=== PATIENT | male | born 1945 | race American Indian/Alaskan Native ===

== ENCOUNTER 2016-11-09 19:46 | Inpatient (IN) | payer OTHER, MEDICAID ==
--- NOTE | 2016-11-09 19:52 | EDPHY ---
H & P Time Seen by Provider: 11/09/16 19:51 Constitutional: Initial Vital Signs Temperature (C) 36.7 C 11/09/16 20:16 Heart Rate 74 11/09/16 20:16 Respiratory Rate 18 11/09/16 20:16 Blood Pressure 182/112 H 11/09/16 20:16 O2 Sat (%) 99 11/09/16 20:16 O2 Delivery Mode Room Air Allergies/Adverse Reactions: Unable to Assess Allergy (Unverified 11/09/16 20:06) Home Medications: Medication Instructions Recorded Unobtainable 11/09/16 Medical Decision Making ED Course/Re-evaluation: CHIEF COMPLAINT: Altered mental status. HISTORY OF PRESENT ILLNESS: The patient is a 71-year-old male with history of dementia, found down on [address], presenting with altered mental stats. The patient arrived Tuesday from [place]. He currently resides at an assisted living facility and absconded from the facility this evening. His caregiver was unaware that the patient left. He was found down on the side of the road. History is unobtainable due to patients altered mental status. REVIEW OF SYSTEMS: Unobtainable due to altered mental status. PHYSICAL EXAM: HR, BP, O2 Sat, RR. Temp noted General Appearance: Alert, well hydrated, appropriate, and non-toxic appearing. Head: Atraumatic without scalp tenderness or obvious injury Eyes: Pupils equal, round, reactive to light and accommodation, EOMI, no trauma , no injection. Ears: Clear bilaterally, no perforation, normal landmarks Nose: Atraumatic, no rhinorrhea, clear. Throat: There is no erythema or exudates, no lesions, normal tonsils, mucus membranes moist. Neck: Supple, 2+ carotid upstroke, nontender, no lymphadenopathy. Respiratory: No retractions, no distress, no wheezes, and no accessory muscle use. Lungs are clear to auscultation bilaterally. Cardiovascular: Regular rate and rhythm, no murmurs, rubs, or gallops. Bilateral carotid, radial, dorsalis pedis, and posterior tibial pulses intact. Good capillary refill all extremities. Gastrointestinal: Abdomen is soft, nontender, non-distended, no masses, no rebound, no guarding, no peritoneal signs. Musculoskeletal: Normal active ROM of all extremities, atraumatic. Neurological: Alert, appropriate, and interactive. The patient has normal DTRs and non-focal cranial nerves, motor, sensory, and cerebellar exam. Skin: No rashes, good turgor, no nodules on palpation. Past medical history: Dementia Past surgical history: Unknown. Family history: Unknown. Social history: From [place]. DIAGNOSTICS/PROCEDURES/CRITICAL CARE TIME: DIFFERENTIAL DIAGNOSIS: The differential diagnosis for the patient's altered mental status included but was not limited to hypoglycemia, infectious process, electrolyte abnormality, head injury, neurologic process, anemia, cardiac process, and intoxicants. MEDICAL DECISION MAKING: Patient presents with altered mental status. Patient was found down on the side of the road. He arrived in [place] 3 days ago from [place]. He has an abrasion to the bridge of his nose. Plan for lab work and CT head. No alcohol found. UA is negative for infection. Na is slightly low at 130 though I do not suspect this is the cause of AMS. Plan to admit the patient. 9:35 p.m.: I spoke to the hospitalist, the patient will be admitted to Dr. Corbett. - Data Points Laboratory Results: Laboratory Results 11/09/16 20:30 11/09/16 20:30 11/09/16 11/09/16 11/09/16 20:30 20:30 20:20 WBC 11.81 10^3/uL H 10^3/uL (3.80-9.50) RBC 3.92 10^6/uL L 10^6/uL (4.40-6.38) Hgb 13.0 g/dL L g/dL (13.7-17.5) Hct 35.4 % L % (40.0-51.0) MCV 90.3 fL fL (81.5-99.8) MCH 33.2 pg pg (27.9-34.1) MCHC 36.7 g/dL g/dL (32.4-36.7) RDW 12.3 % % (11.5-15.2) Plt Count 291 10^3/uL 10^3/uL (150-400) MPV 9.5 fL fL (8.7-11.7) Neut % (Auto) 89.5 % H % (39.3-74.2) Lymph % (Auto) 4.1 % L % (15.0-45.0) [place] % (Auto) 4.6 % % (4.5-13.0) Eos % (Auto) 0.4 % L % (0.6-7.6) Baso % (Auto) 0.3 % % (0.3-1.7) Nucleat RBC Rel Count 0.0 % % (0.0-0.2) Absolute Neuts (auto) 10.56 10^3/uL H 10^3/uL (1.70-6.50) Absolute Lymphs (auto) 0.49 10^3/uL L 10^3/uL (1.00-3.00) Absolute Monos (auto) 0.54 10^3/uL 10^3/uL (0.30-0.80) Absolute Eos (auto) 0.05 10^3/uL 10^3/uL (0.03-0.40) Absolute Basos (auto) 0.04 10^3/uL 10^3/uL (0.02-0.10) Absolute Nucleated RBC 0.00 10^3/uL 10^3/uL (0-0.01) Immature Gran % 1.1 % % (0.0-1.1) Immature Gran # 0.13 10^3/uL H 10^3/uL (0.00-0.10) Sodium 130 mEq/L L mEq/L (134-144) Potassium 4.2 mEq/L mEq/L (3.5-5.2) Chloride 95 mEq/L L mEq/L (97-110) Carbon Dioxide 20 mEq/l L mEq/l (22-31) Anion Gap 15 mEq/L mEq/L (8-16) BUN 16 mg/dL mg/dL (7-23) Creatinine 0.8 mg/dL mg/dL (0.7-1.3) Estimated GFR > 60 Glucose 170 mg/dL H mg/dL (70-100) Calcium 9.8 mg/dL mg/dL (8.5-10.4) Urine Opiates Screen NEGATIVE (NEGATIVE) Urine Barbiturates NEGATIVE (NEGATIVE) Ur Phencyclidine Scrn NEGATIVE (NEGATIVE) Ur Amphetamine Screen NEGATIVE (NEGATIVE) U Benzodiazepines Scrn NEGATIVE (NEGATIVE) Urine Cocaine Screen NEGATIVE (NEGATIVE) U Marijuana (THC) Screen NON-NEGATIVE H (NEGATIVE) Ethyl Alcohol < 10 mg/dL mg/dL (0-10) Departure - Departure Disposition: [facility] Inpatient Acute Clinical Impression: Altered mental status Qualifiers: Altered mental status type: unspecified Qualified Code(s): R41.82 - Altered mental status, unspecified Condition: Fair Referrals: Patient,NotPresent [Unknown] - As per Instructions Report Scribed for: Ar Lim Report Scribed by: Leann Apple Date of Report: 11/09/16 Time of Report: 20:03
[2016-11-09] MEDS ORDERED: ONDANSETRON 4 MG/2 ML VIAL ONE (20:39)
[2016-11-09 20:48] LABS: % IMMATURE GRANULYOCYTES 1.1 % (0.0-1.1); ABSOLUTE IMMATURE GRANULOCYTES 0.13 10^3/uL (0.00-0.10); ADD DIFF? NO; ADD MORPH? NO; ADD SCAN? NO; ATYPICAL LYMPHOCYTE FLAG 0 (0-99); FRAGMENT RBC FLAG 0 (0-99); HEMATOCRIT 35.4 % (40.0-51.0); LEFT SHIFT FLG 0 (0-99); LIPEMIA HEMOLYSIS FLAG 90 (0-99); MEAN CELL HEMOGLOBIN 33.2 pg (27.9-34.1); MEAN CELL HEMOGLOBIN CONCENTR. 36.7 g/dL (32.4-36.7); MEAN CELL VOLUME 90.3 fL (81.5-99.8); MEAN PLATELET VOLUME 9.5 fL (8.7-11.7); PLATELET CLUMPS FLAG 0 (0-99); PLATELET COUNT 291 10^3/uL (150-400); RED BLOOD CELL COUNT 3.92 10^6/uL (4.40-6.38); RED CELL DISTRIBUTION WIDTH 12.3 % (11.5-15.2)
[2016-11-09 21:06] LABS: ANION GAP 15 mEq/L (8-16); CALCIUM 9.8 mg/dL (8.5-10.4); CARBON DIOXIDE 20 mEq/l (22-31); CHLORIDE 95 mEq/L (97-110); CREATININE 0.8 mg/dL (0.7-1.3); ETHANOL SERUM < 10 mg/dL (0-10); GLOMERULAR FILTRATION RATE > 60; GLUCOSE 170 mg/dL (70-100); POTASSIUM 4.2 mEq/L (3.5-5.2); SODIUM 130 mEq/L (134-144)
[2016-11-09] MEDS ORDERED: ONDANSETRON DISINTEGRATING 4 MG TAB PO PRN (22:30)
[2016-11-09] MEDS ORDERED: ONDANSETRON 4 MG/2 ML VIAL IVP PRN (22:30)
--- NOTE | 2016-11-09 22:40 | PDGENHP ---
History and Physical - Chief Complaint altered mental status - History of Present Illness History is limited due to patient's altered mental status; peripheral history obtained from patient's friend and from ED staff. Patient is a 71 year old male with DM2, HTN, CAD, dementia who was brought to the ED by EMS after being found unresponsive. Per patient's friend, he is currently visiting [place] from [facility], arrived on 11/05 and is staying with the friend in [place]. Friend states his mental status began to alter on 11/07 evening, with episodes of agitation and extreme confusion. The following day, friend also notice patient's gait was off balance and he nearly fell several times over the following day. Today, patient walked down the friend's driveway into the street to get the mail at about 630-7pm and didn't return. He was apparently found down on the side of the road by bystanders, so EMS was called and he was brought in to the ED. On arrival to the ED, patient was afebrile, slightly hypertensive, and significantly altered. Labs revealed mild leukocytosis, mild hyponatremia. Urine drug screen was positive for marijuana only. CT head showed significant microvascular disease, but no acute intracranial hemorrhage, edema, mass. EKG without evidence of ischemia. He was given IVF hydration and admitted to the hospitalist service for further management. History Information - Allergies/Home Medication List Allergies/Adverse Reactions: Unable to Assess Allergy (Unverified 11/09/16 20:06) Home Medications: Unobtainable 11/09/16 [Last Taken Unknown] I have personally reviewed and updated: family history, medical history, social history, surgical history - Past Medical History Additional medical history: Dementia. DM2. Hypertension. CAD. history given by patient's friend, unable to verify with patient - Surgical History Additional surgical history: unknown - Family History Additional family history: unknown - Social History Smoking Status: Former smoker (distant past history of tobacco use) Alcohol Use: Sober (x 3 years) Drug Use: Marijuana (daily use) Additional social history: Patient is juanis, per friend patient currently lives independently in [facility]; visiting a friend in [place] Review of Systems Review of Systems: unable to obtain full ROS Physical Exam Temp Pulse Resp BP Pulse Ox 36.7 C 74 18 182/112 H 99 11/09/16 20:16 11/09/16 20:16 11/09/16 20:16 11/09/16 20:16 11/09/16 20:16 Constitutional: no apparent distress, appears nourished, not in pain Eyes: PERRL, anicteric sclera, EOMI Ears, Nose, Mouth, Throat: moist mucous membranes, hearing normal, ears appear normal, no oral mucosal ulcers Cardiovascular: regular rate and rhythym, no murmur, rub, or gallop, pulses symmetric bilaterally, No JVD, No edema Peripheral Pulses: 2+: dorsalis-pedis (R), dorsalis-pedis (L) Respiratory: no respiratory distress, no rales or rhonchi, clear to auscultation Gastrointestinal: normoactive bowel sounds, soft, non-tender abdomen, no palpable masses, No tenderness, No guarding, No rebound, No distension Genitourinary: no bladder fullness, no bladder tenderness Skin: warm, normal color, abrasion (on bridge of nose and R zygomatic process) Musculoskeletal: full muscle strength, no muscle tenderness, normal joint ROM, no joint effusions, other (no point spinal tenderness) Neurologic: other (oriented to person only; moving all extremities equally) Psychiatric: encephalopathic Lab Data & Imaging Review 11/09/16 20:30 11/09/16 20:30 WBC 11.81 10^3/uL (3.80-9.50) H 11/09/16 20:30 RBC 3.92 10^6/uL (4.40-6.38) L 11/09/16 20:30 Hgb 13.0 g/dL (13.7-17.5) L 11/09/16 20:30 Hct 35.4 % (40.0-51.0) L 11/09/16 20:30 MCV 90.3 fL (81.5-99.8) 11/09/16 20:30 MCH 33.2 pg (27.9-34.1) 11/09/16 20:30 MCHC 36.7 g/dL (32.4-36.7) 11/09/16 20:30 RDW 12.3 % (11.5-15.2) 11/09/16 20:30 Plt Count 291 10^3/uL (150-400) 11/09/16 20:30 MPV 9.5 fL (8.7-11.7) 11/09/16 20:30 Neut % (Auto) 89.5 % (39.3-74.2) H 11/09/16 20:30 Lymph % (Auto) 4.1 % (15.0-45.0) L 11/09/16 20:30 [place] % (Auto) 4.6 % (4.5-13.0) 11/09/16 20:30 Eos % (Auto) 0.4 % (0.6-7.6) L 11/09/16 20:30 Baso % (Auto) 0.3 % (0.3-1.7) 11/09/16 20:30 Nucleat RBC Rel Count 0.0 % (0.0-0.2) 11/09/16 20:30 Absolute Neuts (auto) 10.56 10^3/uL (1.70-6.50) H 11/09/16 20:30 Absolute Lymphs (auto) 0.49 10^3/uL (1.00-3.00) L 11/09/16 20:30 Absolute Monos (auto) 0.54 10^3/uL (0.30-0.80) 11/09/16 20:30 Absolute Eos (auto) 0.05 10^3/uL (0.03-0.40) 11/09/16 20:30 Absolute Basos (auto) 0.04 10^3/uL (0.02-0.10) 11/09/16 20:30 Absolute Nucleated RBC 0.00 10^3/uL (0-0.01) 11/09/16 20:30 Immature Gran % 1.1 % (0.0-1.1) 11/09/16 20:30 Immature Gran # 0.13 10^3/uL (0.00-0.10) H 11/09/16 20:30 Sodium 130 mEq/L (134-144) L 11/09/16 20:30 Potassium 4.2 mEq/L (3.5-5.2) 11/09/16 20:30 Chloride 95 mEq/L (97-110) L 11/09/16 20:30 Carbon Dioxide 20 mEq/l (22-31) L 11/09/16 20:30 Anion Gap 15 mEq/L (8-16) 11/09/16 20:30 BUN 16 mg/dL (7-23) 11/09/16 20:30 Creatinine 0.8 mg/dL (0.7-1.3) 11/09/16 20:30 Estimated GFR > 60 11/09/16 20:30 Glucose 170 mg/dL (70-100) H 11/09/16 20:30 Calcium 9.8 mg/dL (8.5-10.4) 11/09/16 20:30 Urine Opiates Screen NEGATIVE (NEGATIVE) 11/09/16 20:20 Urine Barbiturates NEGATIVE (NEGATIVE) 11/09/16 20:20 Ur Phencyclidine Scrn NEGATIVE (NEGATIVE) 11/09/16 20:20 Ur Amphetamine Screen NEGATIVE (NEGATIVE) 11/09/16 20:20 U Benzodiazepines Scrn NEGATIVE (NEGATIVE) 11/09/16 20:20 Urine Cocaine Screen NEGATIVE (NEGATIVE) 11/09/16 20:20 U Marijuana (THC) Screen NON-NEGATIVE (NEGATIVE) H 11/09/16 20:20 Ethyl Alcohol < 10 mg/dL (0-10) 11/09/16 20:30 Visualized and Interpreted imaging results: Yes Interpretation: CT head: no acute intracranial abnormalities, microvascular changes Visualized and Interpreted EKG results: Yes EKG Interpretation: Positive for: normal sinsus rhythm (no st/t wave changes) Assessment & Plan Assessment: Patient is a 71 year old male with DM2, HTN, CAD, dementia, whose baseline mental status is not clear (apparently lives independently), who was found altered on the side of a road, brought into the ED by EMS. ED evaluation reveals evidence of mild dehydration on labs, mild leukocytosis, but no obvious infection. Etiology of acute encephalopathy is likely multifactorial. Plan: # acute encephalopathy Likely multifactorial, related to mild dehydration, acute marijuana intoxication and his underlying dementia. On exam, although encephalopathic, he has no other focal deficits, is moving all extremities equally. CT head shows chronic microvascular changes without acute hemorrhage or infarct. Labs do show mild leukocytosis and evidence of mild hyponatremia/hypochloremia consistent with dehydration. Differential includes dehydration, infection, syncope, seizure , intoxication. Will check UA to rule out infection, continue gentle IV hydration overnight and continue to monitor. If no improvement in MS, consider MRI brain, neurology consult. # presumed fall vs syncope Patient was found on the ground at the side of a road. Given abrasions on his face, it was presumed he fell vs syncopized. Patient cannot provide a detailed history of what happened. Friend does state patient has been unsteady on his feet for the past 2-3 days, but has not had any witnessed falls. At baseline, patient uses walking sticks to ambulate. Will place on fall precautions, obtain PT/OT eval. Will monitor on telemetry, check TTE to r/o cardiac syncope. # DM2 Patient reports not taking any medications for this, although is encephalopathic. Will attempt to confirm home medications, and monitor FS with sliding scale coverage. # HTN BP elevated on presentation, has improved over ED course. Will continue to monitor and confirm home meds. # ?CAD Patient's friend reports he has had an KS in the past, unclear when and if PCI was performed. Admission EKG shows sinus rhythm without evidence of ischemia. Confirm and resume home meds. # dispo: admit to observation status for mild dehydration, encephalopathy # gen: diabetic diet DVT ppx: lovenox Full code
[2016-11-09] MEDS: NS 1,000 ML IV SCH (23:46)
[2016-11-10 04:57] LABS: % IMMATURE GRANULYOCYTES 0.7 % (0.0-1.1); ABSOLUTE IMMATURE GRANULOCYTES 0.05 10^3/uL (0.00-0.10); ADD DIFF? NO; ADD MORPH? NO; ADD SCAN? NO; ATYPICAL LYMPHOCYTE FLAG 0 (0-99); FRAGMENT RBC FLAG 0 (0-99); HEMATOCRIT 34.1 % (40.0-51.0); HEMOGLOBIN 12.7 g/dL (13.7-17.5); LEFT SHIFT FLG 0 (0-99); LIPEMIA HEMOLYSIS FLAG 90 (0-99); MEAN CELL HEMOGLOBIN 33.6 pg (27.9-34.1); MEAN CELL HEMOGLOBIN CONCENTR. 37.2 g/dL (32.4-36.7); MEAN CELL VOLUME 90.2 fL (81.5-99.8); MEAN PLATELET VOLUME 9.3 fL (8.7-11.7); PLATELET CLUMPS FLAG 10 (0-99); PLATELET COUNT 276 10^3/uL (150-400); RED BLOOD CELL COUNT 3.78 10^6/uL (4.40-6.38); RED CELL DISTRIBUTION WIDTH 12.2 % (11.5-15.2)
[2016-11-10 04:59] LABS: COLOR PALE YELLOW; LEUKOCYTE ESTERASE,URINE NEGATIVE (NEGATIVE); NITRITE,URINE NEGATIVE (NEGATIVE)
[2016-11-10 05:01] LABS: APTT 30.5 SEC (23.0-38.0); INR 1.06 (0.83-1.16); PROTIME(PATIENT) 13.7 SEC (12.0-15.0)
[2016-11-10 05:08] LABS: ALANINE AMINOTRANSFERASE 60 IU/L (21-72); ALBUMIN 4.5 g/dL (3.5-5.0); ALKALINE PHOSPHATASE 68 IU/L (38-126); ANION GAP 11 mEq/L (8-16); ASPARTATE AMINOTRANSFERASE 78 IU/L (17-59); BILIRUBIN,TOTAL 1.4 mg/dL (0.1-1.4); CALCIUM 9.2 mg/dL (8.5-10.4); CARBON DIOXIDE 20 mEq/l (22-31); CHLORIDE 101 mEq/L (97-110); CREATININE 0.6 mg/dL (0.7-1.3); GLOMERULAR FILTRATION RATE > 60; GLUCOSE 139 mg/dL (70-100); MAGNESIUM 1.7 mg/dL (1.6-2.3); SODIUM 132 mEq/L (134-144); TOTAL PROTEIN 7.4 g/dL (6.3-8.2)
[2016-11-10 05:21] LABS: WBC,URINE NONE SEEN /hpf (0-3)
[2016-11-10] MEDS: ACETAMINOPHEN 325 MG TAB PO PRN ×3 (06:13→20:46)
[2016-11-10] MEDS: ENOXAPARIN 40 MG/0.4 ML SYR SC SCH (08:42)
[2016-11-10] MEDS ORDERED: hydrALAZINE 20 MG/ML VIAL IVP ONE (09:16)
[2016-11-10] MEDS ORDERED: HALOPERIDOL LACT 5 MG/ML INJ IM ONE (09:21)
--- NOTE | 2016-11-10 12:07 | ECHO ---
[id number] + + [address] : : [place] [address] : : [phone] + Adult Echocardiographic Report + ----+ :Name: ABIGAIL NEAL RStudy Date: 11/10/2016 10:13 AM : : Hospital Admission Number: [id number] Location: 343: :: 1945 Gender: Male Height: 67 in : :Age: 71 yrs Race: AIA Weight: 135 lb : :Reason For Study: Eval LV Fx : : BSA: 1.7 meters2 : :History: Altered mental status, Patient found down, Syncope : + ----+ MMode/2D Measurements \T\ Calculations IVSd: 0.86 cm LVIDd: 3.8 cm FS: 44.8 % LVPWd: 0.94 cm LVIDs: 2.1 cm EDV(Teich): 62.7 ml ESV(Teich): 14.6 ml EF(Teich): 76.8 % Normal Measurement Values: + + :LVIDd (3.5-5.7cm) IVSd (0.6-1.1cm) LVPWd (0.6-1.1cm) Aortic Root (2.0-3.7cm)Left Atrium (1.5-4.0cm): :LV Vol(d) (76-115ml) LV Vol(s) (29-48ml) Ejec Fraction (50-65%)PV Charlie (0.6- 1.2m/s) TV Charlie (0.4-1.0m/s) : :MV E Charlie (0.8-1.0m/s)MV A Charlie (0.3-1.0m/s)LVOT Charlie (0.7-1.2m/s) Asc Ao Charlie ( 0.9-1.8m/s) : + + Doppler Measurements \T\ Calculations MV E max charlie: 67.1 cm/sec Ao V2 max: 109.0 cm/sec LV V1 max: 68.6 cm/sec MV A max charlie: 77.5 cm/sec Ao max P.8 mmHg LV V1 max P.9 mmHg MV E/A: 0.87 Left Ventricle The left ventricle is normal in size. There is normal left ventricular wall thickness. The left ventricular ejection fraction is normal. There is Doppler evidence for diastolic dysfunction. Ejection Fraction = 77%. The left ventricular wall motion is normal. Right Ventricle The right ventricle is normal in size and function. Atria The left atrial size is normal. Right atrial size is normal. Mitral Valve There is mild mitral annular calcification. There is no evidence of mitral valve prolapse. There is no mitral valve stenosis. There is trace mitral regurgitation. Tricuspid Valve The tricuspid valve is normal in structure and function. No tricuspid regurgitation. Aortic Valve The aortic valve is normal in structure and function. There is no aortic stenosis. There is no aortic insufficiency. Pulmonic Valve The pulmonic valve is normal in structure and function. There is no pulmonic valvular regurgitation. Great Vessels The aortic root is normal size. Pericardium/Pleural There is no pericardial effusion. Conclusion A complete two-dimensional transthoracic echocardiogram was performed (2D, M-mode, Doppler and color flow Doppler). The left ventricular ejection fraction is normal. There is Doppler evidence for diastolic dysfunction. Ejection Fraction = 77%. The left ventricular wall motion is normal. The right ventricle is normal in size and function. There is mild mitral annular calcification. There is trace mitral regurgitation. The tricuspid valve is normal in structure and function. The aortic valve is normal in structure and function. There is no pericardial effusion. Final Reading Physician: Kj Matthews signed on 11/10/2016 12:06 PM Ordering Physician: Melo Corbett Performed By: Joel Lerma, RDCS
[2016-11-10] MEDS: LISINOPRIL 10 MG TAB PO SCH (15:27)
--- NOTE | 2016-11-10 16:47 | HOSPPROG ---
Hospitalist Progress Note Objective: Vital Signs Temp Pulse Resp BP Pulse Ox 36.6 C 115 H 20 125/81 H 94 11/10/16 15:35 11/10/16 15:35 11/10/16 15:35 11/10/16 15:35 11/10/16 15:35 Laboratory Results 11/10/16 04:29 11/10/16 04:29 11/09/16 11/10/16 11/11/16 05:59 05:59 05:59 Intake Total 800 Balance 800 PT 13.7 SEC (12.0-15.0) 11/10/16 04:29 INR 1.06 (0.83-1.16) 11/10/16 04:29 - Time Spent With Patient Time Spent with Patient: greater than 35 minutes Time Spent with Patient: Greater than 35 minutes spent on this patients care, greater than 50% of time spent counseling, educating, and coordinating care regarding the above mentioned plan. - Pending Discharge Pending Discharge Within 24 Hours: No Pending Discharge Within 48 Hours: No - Physical Exam Constitutional: no apparent distress, chronically ill appearing Eyes: PERRL Ears, Nose, Mouth, Throat: moist mucous membranes Cardiovascular: regular rate and rhythym, no murmur, rub, or gallop, systolic murmur Respiratory: no respiratory distress, no rales or rhonchi Gastrointestinal: normoactive bowel sounds, soft, non-tender abdomen, no palpable masses Skin: warm Musculoskeletal: generalized weakness Neurologic: CN II-XII Intact Psychiatric: agitated, poor insight, poor judgement, poor memory ICD10 Worksheet Patient Problems: Problems Problem Status Onset Altered mental status Acute
--- NOTE | 2016-11-10 17:09 | HOSPPROG ---
Hospitalist Progress Note Assessment/Plan: 71-year-old male admitted because of confusion and he was found down. He was noted to have hyponatremia. Patient is new to me today. Patient is aware of his current surroundings but cannot give specific information as to why he was in [place] or where he came from. - Hyponatremia with a sodium of 132. this being treated with IV fluids at this time. - Leukocytosis on admission now declining without fever. There is no current signs of infection. - Diabetes mellitus by history. Will treat with SSI insulin as needed. - Toxic metabolic encephalopathy on admission: This is presumed secondary to his hyponatremia possibly glucose abnormality and may be an infection. As these conditions resolve it may become evident that the gentleman simply has an underlying dementia. Gentleman performed poorly on a mini-mental status exam yet I would wait till he has 24 hours post admission and had adequate fluid hydration to perform a 2nd MMS exam. Subjective: No complaints. He rambles in his history and though he can give articulate answers to past events he cannot remember recent events. He avoids answering specific questions about the events surrounding his arrival here at the hospital. Objective: Vital Signs Temp Pulse Resp BP Pulse Ox 36.6 C 115 H 20 125/81 H 94 11/10/16 15:35 11/10/16 15:35 11/10/16 15:35 11/10/16 15:35 11/10/16 15:35 Laboratory Results 11/10/16 04:29 11/10/16 04:29 11/09/16 11/10/16 11/11/16 05:59 05:59 05:59 Intake Total 800 Balance 800 PT 13.7 SEC (12.0-15.0) 11/10/16 04:29 INR 1.06 (0.83-1.16) 11/10/16 04:29 - Time Spent With Patient Time Spent with Patient: greater than 35 minutes Time Spent with Patient: Greater than 35 minutes spent on this patients care, greater than 50% of time spent counseling, educating, and coordinating care regarding the above mentioned plan. - Pending Discharge Pending Discharge Within 24 Hours: No Pending Discharge Within 48 Hours: Yes Pending Discharge Date: 11/12/16 Pending Discharge Time: 11:00 - Physical Exam Constitutional: no apparent distress, chronically ill appearing, unkempt, other ( Very thin and weathered appearance.) Eyes: PERRL, anicteric sclera Ears, Nose, Mouth, Throat: moist mucous membranes, hard of hearing Cardiovascular: regular rate and rhythym, no murmur, rub, or gallop Respiratory: no respiratory distress, no rales or rhonchi, reduced air movement Gastrointestinal: normoactive bowel sounds, soft, non-tender abdomen, no palpable masses Genitourinary: no bladder fullness Skin: warm Musculoskeletal: generalized weakness Neurologic: CN II-XII Intact, No other ( Oriented x1. [facility] and knows he is in [place] but he does note know the date or time. A mini mental status exam would indicate that hehas very poor memory for short-term events.) Psychiatric: agitated, poor judgement, poor memory ICD10 Worksheet Patient Problems: Problems Problem Status Onset Altered mental status Acute
[2016-11-10] MEDS: HALOPERIDOL 5 MG TAB PO PRN (18:19)
[2016-11-10] MEDS: NS 1,000 ML IV SCH (22:10)
[2016-11-11] MEDS: ACETAMINOPHEN 325 MG TAB PO PRN ×4 (02:22→22:41)
[2016-11-11] MEDS: HALOPERIDOL 5 MG TAB PO PRN (02:31)
[2016-11-11 05:57] LABS: % IMMATURE GRANULYOCYTES 0.4 % (0.0-1.1); ABSOLUTE IMMATURE GRANULOCYTES 0.02 10^3/uL (0.00-0.10); ADD DIFF? NO; ADD MORPH? NO; ADD SCAN? NO; ATYPICAL LYMPHOCYTE FLAG 10 (0-99); FRAGMENT RBC FLAG 10 (0-99); HEMATOCRIT 33.9 % (40.0-51.0); HEMOGLOBIN 12.2 g/dL (13.7-17.5); LEFT SHIFT FLG 0 (0-99); LIPEMIA HEMOLYSIS FLAG 90 (0-99); MEAN CELL VOLUME 91.6 fL (81.5-99.8); PLATELET CLUMPS FLAG 0 (0-99); PLATELET COUNT 300 10^3/uL (150-400); RED CELL DISTRIBUTION WIDTH 12.6 % (11.5-15.2)
[2016-11-11 06:00] LABS: ANION GAP 7 mEq/L (8-16); CALCIUM 8.9 mg/dL (8.5-10.4); CARBON DIOXIDE 21 mEq/l (22-31); CHLORIDE 103 mEq/L (97-110); CREATININE 0.7 mg/dL (0.7-1.3); GLOMERULAR FILTRATION RATE > 60; GLUCOSE 125 mg/dL (70-100); POTASSIUM 3.7 mEq/L (3.5-5.2); SODIUM 131 mEq/L (134-144)
[2016-11-11] MEDS: LISINOPRIL 10 MG TAB PO SCH (10:51)
[2016-11-11] MEDS: ENOXAPARIN 40 MG/0.4 ML SYR SC SCH (10:52)
--- NOTE | 2016-11-11 12:50 | HOSPPROG ---
Hospitalist Progress Note Assessment/Plan: New problem: Significant hypertension was noted since admission and has been treated. Since now seems to be coming under control. It is possible the gentleman has underlying conditions which were exacerbated by uncontrolled hypertension. I would continue to treat his hypertension And watch for improvement in his mental status. 71-year-old male admitted because of confusion and he was found down. He was noted to have hyponatremia. Patient is new to me today. Patient is aware of his current surroundings. Chart reviewed. D/W CM. - Hyponatremia with a sodium of 132. this being treated with IV fluids at this time. Stable - Leukocytosis on admission now resolved. There is no current signs of infection. - Diabetes mellitus by history. Will treat with SSI insulin as needed. - Toxic metabolic encephalopathy on admission: This is presumed secondary to his hyponatremia and THC ingestion. Very lethargic, did receive a dose of Haldol at 02:00. Will DC this and watch. -Significant hypertension was noted since admission and has been treated. Since now seems to be coming under control. It is possible the gentleman has underlying conditions which were exacerbated by uncontrolled hypertension. I would continue to treat his hypertension And watch for improvement in his mental status. -Disposition at this time is unclear but suspect he can be discharged in 1-2 days. He is visiting from [facility] and staying with a friend in [place]. I suspect the gentleman has an underlying dementia yet exacerbating medical conditions need to be ruled out. D/W CM. Subjective: Feeling very tired today. No specific issues. No pain or cough. Objective: Vital Signs Temp Pulse Resp BP Pulse Ox 36.9 C 78 18 164/92 H 97 11/11/16 11:32 11/11/16 11:32 11/11/16 11:32 11/11/16 11:32 11/11/16 11:32 Laboratory Results 11/11/16 04:23 11/11/16 04:23 11/10/16 11/11/16 11/12/16 05:59 05:59 05:59 Intake Total 800 1450 Output Total 500 250 Balance 800 950 -250 PT 13.7 SEC (12.0-15.0) 11/10/16 04:29 INR 1.06 (0.83-1.16) 11/10/16 04:29 - Physical Exam Constitutional: no apparent distress, not in pain, chronically ill appearing Eyes: PERRL, anicteric sclera, EOMI Ears, Nose, Mouth, Throat: moist mucous membranes, hearing normal, ears appear normal Cardiovascular: No JVD, No tachycardia, No edema Respiratory: no respiratory distress, no rales or rhonchi, reduced air movement Gastrointestinal: No tenderness, No ascites, No guarding Skin: warm, normal color, No erythema Musculoskeletal: normal joint ROM, no joint effusions, generalized weakness Psychiatric: not anxious, not encephalopathic, poor insight, poor memory ICD10 Worksheet Patient Problems: Problems Problem Status Onset Altered mental status Acute
[2016-11-11] MEDS ORDERED: PNEUMOC 13-VAL CONJ-DIP CRM/PF 0.5 ML SYR IM ONE (14:05)
[2016-11-11] MEDS: NS 1,000 ML IV SCH (21:45)
[2016-11-11 23:31] VITALS: O2SAT 97
[2016-11-12] MEDS: ACETAMINOPHEN 325 MG TAB PO PRN (03:22)
[2016-11-12] MEDS ORDERED: traMADol 50 MG TAB PO PRN (04:04)
[2016-11-12 07:52] VITALS: PULSE 100; RESP 14; TEMP 98.9
[2016-11-12] MEDS: LISINOPRIL 10 MG TAB PO SCH (08:36)
[2016-11-12] MEDS: ENOXAPARIN 40 MG/0.4 ML SYR SC SCH (08:36)
[2016-11-12 08:37] VITALS: BP 142/102
--- NOTE | 2016-11-12 12:23 | GDS ---
[f rep st] DISCHARGE SUMMARY DISCHARGE DIAGNOSES: 1. Toxic metabolic encephalopathy. 2. Leukocytosis. 3. Diabetes mellitus. 4. Hyponatremia. 5. Hypertension. PHYSICAL EXAM: GENERAL: Patient is alert. VITAL SIGNS: Afebrile at 37.2, pulse is 100, respirato ry rate is 14, blood pressure is 136/104, he is saturating 97% on room air. I have seen and evaluat ed the patient on the day of discharge. HOSPITAL COURSE: The patient is a 71-year-old male visiting from [place]. He was found down and was brought to the emergency room via EMS. He was evaluated and diagnosed with: 1. Toxic metabolic encephalopathy. This is likely secondary to the patient's THC ingestion. He chan s recovered well, he is at his baseline mentation, and requires no further evaluation regarding this condition. 2. Leukocytosis. This is likely in the setting of acute response and has resolved. 3. Diabetes mellitus. Patient will continue with his previous medication regimen. 4. Hyponatremia, this is stable prior to disposition. He will follow with his primary care marina cassidy. 5. Hypertension. Patient has been reinitiated on his lisinopril. He does likely need further anti hypertensive medications, but is refusing them at this time. He states he wants to follow with his primary care physician in [place]. 6. Abnormal TSH. I have recommended to the patient that he follow up and have his TSH reevaluated in the outpatient setting once he is feeling better. DISPOSITION: The patient will be discharged home to his friend's house, with a plan to return to [facility] as soon as possible. I have discussed the patient's disposition with Case Management. DISCHARGE MEDICATIONS: Please refer to EMR form. I have not provided any prescriptions for the pat ient at the time of disposition. Followup will be with his primary care physician in [place] for a TSH evaluation, as well as blood pressure management. I have spent greater than 35 minutes in doctors hospital care, coordination, and management of this patient's disposition, in discussion with therapy as we ll as Case Management and the patient. /[id number]/MODL
== END 2016-11-12 17:07 | disposition home or self-care (01) | DRG 92 ==
LOC: F3N 23:38 → OBSVTOIN 11-11 12:44
PROVIDERS: ADMIT Internal Medicine; ATTEND Family Medicine
DX: G92 Toxic encephalopathy (principal); T40.7X5A Adverse effect of cannabis (derivatives), initial encounter; E87.1 Hypo-osmolality and hyponatremia; E11.9 Type 2 diabetes mellitus without complications; I10 Essential (primary) hypertension; R94.6 Abnormal results of thyroid function studies; I25.10 Atherosclerotic heart disease of native coronary artery without angina pectoris
CPT/HCPCS: 80305; 92507-GN; 92523-GN; 97116-GP; 97162-GP; 97530-GP; G0009; G0378; G0480; G8978-GP-CJ; G8979-GP-CI; G9165-GN-CL; G9166-GN-CI; J0360; J1650; J2405